=== PATIENT | male | born 1980 | race Caucasian/White ===

== ENCOUNTER 2024-08-19 14:44 | Emergency (ER) | payer MEDICAID ==
[~2024-08-19] VITALS: Ht 170.2 cm; Wt 75.0 kg
[2024-08-19 14:47] VITALS: BP 120/80; PULSE 86; RESP 16; O2SAT 100
[2024-08-19 16:54] LABS: BASOPHILS % 0.7 % (0.0-2.0); DIFFERENTIAL COMMENT 0; HEMATOCRIT. 48.6 % (42.0-52.0); HEMOGLOBIN. 16.3 g/dL (14.0-18.0); MEAN CORPUSCULAR HEMOGLOBIN 31.5 pg (28.0-32.0); MEAN CORPUSCULAR HGB CONC 33.5 g/dL (31.0-37.0); MEAN PLATELET VOLUME 11.4 fl (7.4-10.4); MONOCYTES % 6.1 % (2.0-8.0); NEUTROPHILS % 59.2 % (40.0-76.0); PLATELET 150 x1000/uL (130-400); RED BLOOD CELL COUNT 5.17 mill/uL (4.7-6.1); RED CELL DISTRIBUTION WIDTH 13.6 % (11.6-14.6); WHITE BLOOD COUNT 7.8 x1000/uL (4.5-11.0)
[2024-08-19 17:00] LABS: CHLORIDE 109 mEq/L (98-107); POTASSIUM 4.3 mEq/L (3.5-5.1); SODIUM 143 mEq/L (136-145)
[2024-08-19 17:01] LABS: CARBON DIOXIDE 25 mEq/L (21-32)
[2024-08-19 17:02] LABS: CALCIUM 9.4 mg/dL (8.7-10.4)
[2024-08-19 17:04] LABS: PROTHROMBIN TIME 10.9 sec (9.6-11.0)
[2024-08-19 17:06] LABS: GLUCOSE 99 mg/dL (70-105)
[2024-08-19 17:07] LABS: ETHANOL BLOOD 270 mg/dL (<10); UREA NITROGEN BLOOD 15 mg/dL (9-23)
== END 2024-08-19 18:58 | disposition left against medical advice (07) ==
LOC: ER 14:44
DX: F10.129 Alcohol abuse with intoxication, unspecified (principal); E11.9 Type 2 diabetes mellitus without complications; I67.82 Cerebral ischemia; Y90.8 Blood alcohol level of 240 mg/100 ml or more
CPT/HCPCS: 36415; 71045; 80048; 80320; 85025; 99284; G0480